=== PATIENT | male | born 1980 | race African-American/Black ===

== ENCOUNTER 2018-02-17 17:59 | Emergency (ER) | payer MEDICAID ==
[~2018-02-17] VITALS: Ht 182.9 cm; Wt 81.8 kg
[2018-02-17 18:16] VITALS: BP 127/73
[2018-02-17] MEDS ORDERED: FLUORESCEIN SODIUM 1MG/STRIP RIGHTEYE ONE (22:30)
[2018-02-17] MEDS ORDERED: TETRACAINE 0.5% OPHTH DROPS 4ML RIGHTEYE ONE (22:30)
== END 2018-02-17 23:40 | disposition home or self-care (01) ==
LOC: ER 17:59
DX: B30.9 Viral conjunctivitis, unspecified (principal); F17.200 Nicotine dependence, unspecified, uncomplicated
CPT/HCPCS: 99283

== ENCOUNTER 2018-05-20 22:58 | Emergency (ER) | payer MEDICAID ==
[~2018-05-20] VITALS: Ht 182.9 cm; Wt 91.0 kg
[2018-05-20] MEDS ORDERED: MORPHINE SULFATE 4 MG/ML CPJ (NOT FOR IM USE) IV ONE (23:15)
[2018-05-20] MEDS ORDERED: LIDOCAINE HCL 2% JELLY 5ML TOP ONE (23:30)
[2018-05-20] MEDS ORDERED: LORAZEPAM 2MG/ML CPJ IV SCH (23:39)
[2018-05-20] MEDS ORDERED: LORAZEPAM 2MG/ML CPJ IV ONE (23:45)
[2018-05-21] MEDS ORDERED: LIDOCAINE HCL/EPINEPHRINE 1%-EPI 1:100,000 20 ML VIAL ONE (00:11)
[2018-05-21] MEDS ORDERED: LIDOCAINE 1%/EPI 1:100,000 10 ML VIAL IJ ONE (00:15)
[2018-05-21] MEDS ORDERED: ONDANSETRON HCL 4MG/2ML INJ IV ONE (00:30)
[2018-05-21] MEDS ORDERED: PROPOFOL 200MG/20ML VIAL IV PRN (00:30)
[2018-05-21] MEDS ORDERED: KETAMINE HCL 50 MG/ML 10ML IV ONE (00:30)
[2018-05-21] MEDS ORDERED: PROPOFOL 200MG/20ML VIAL IV ONE (01:17)
[2018-05-21] MEDS ORDERED: SODIUM CHLORIDE 0.9% 500 ML IV ONE (06:00)
[2018-05-21 06:20] LABS: BASOPHILS % 0.7 % (0.0-2.0); EOSINOPHILS % 0.4 % (0.0-5.0); HEMATOCRIT. 44.9 % (42.0-52.0); HEMOGLOBIN. 15.1 g/dL (14.0-18.0); LYMPHOCYTES % 16.1 % (20.0-50.0); MEAN CORPUSCULAR HEMOGLOBIN 33.3 pg (28.0-32.0); MEAN CORPUSCULAR VOLUME 98.8 fL (80.0-94.0); MEAN PLATELET VOLUME 6.8 fl (7.4-10.4); MONOCYTES % 4.8 % (2.0-8.0); PLATELET 299 x1000/uL (130-400); RED BLOOD CELL COUNT 4.55 mill/uL (4.7-6.1); RED CELL DISTRIBUTION WIDTH 13.4 % (11.6-14.6)
[2018-05-21 06:29] LABS: PROTHROMBIN TIME 10.2 sec (9.1-11.1)
[2018-05-21 06:40] LABS: CHLORIDE 104 mEq/L (98-107)
[2018-05-21 15:30] VITALS: BP 128/82
== END 2018-05-21 16:46 | disposition home or self-care (01) ==
LOC: ER 22:58
DX: T19.4XXA Foreign body in penis, initial encounter (principal); X58.XXXA Exposure to other specified factors, initial encounter; Y93.89 Activity, other specified; Y92.018 Other place in single-family (private) house as the place of occurrence of the external cause
CPT/HCPCS: 36415; 80053; 85025; 85610; 93005; 96374; 96375; 99152; 99153; 99285; J2060; J2270; J2405; J2704; J3490; J7040; Z7610

== ENCOUNTER 2018-05-27 02:38 | Emergency (ER) | payer MEDICAID ==
[~2018-05-27] VITALS: Ht 182.9 cm; Wt 84.0 kg
[2018-05-27] MEDS ORDERED: TETANUS, DIPHTHERIA, PERTUSSIS VAC/PF 0.5ML (>7YR OLD) IM ONE (08:15)
[2018-05-27] MEDS ORDERED: HYDROCODONE/ACETAMINOPHEN 5/325MG TABLET PO ONE (08:15)
[2018-05-27 09:17] LABS: HEMATOCRIT. 43.8 % (42.0-52.0); HEMOGLOBIN. 14.6 g/dL (14.0-18.0); MEAN CORPUSCULAR HEMOGLOBIN 33.2 pg (28.0-32.0); MEAN CORPUSCULAR VOLUME 99.4 fL (80.0-94.0); PLATELET 313 x1000/uL (130-400); RED CELL DISTRIBUTION WIDTH 14.3 % (11.6-14.6)
[2018-05-27 09:24] LABS: CHLORIDE 106 mEq/L (98-107)
[2018-05-27 10:06] LABS: PLATELET ESTIMATE NORMAL
[2018-05-27 10:53] LABS: CLARITY URINE CLEAR (CLEAR); COLOR URINE YELLOW (YELLOW); KETONES URINE TRACE (NEGATIVE); LEUKOCYTE ESTERASE URINE NEGATIVE (NEGATIVE); NITRITE URINE NEGATIVE (NEGATIVE); OCCULT BLOOD URINE NEGATIVE (NEGATIVE); PH URINE 5.5 (4.5-8.0); PROTEIN URINE NEGATIVE (NEGATIVE); SPECIFIC GRAVITY URINE 1.033 (1.005-1.030)
[2018-05-27 11:53] VITALS: BP 131/84
== END 2018-05-27 11:55 | disposition home or self-care (01) ==
LOC: ER 02:38
DX: N48.89 Other specified disorders of penis (principal); J45.909 Unspecified asthma, uncomplicated; Z98.890 Other specified postprocedural states
CPT/HCPCS: 36415; 51702; 76870; 85007; 85027; 93976; 99284

== ENCOUNTER 2018-09-14 20:21 | Emergency (ER) | payer MEDICAID ==
[~2018-09-14] VITALS: Ht 182.9 cm; Wt 84.0 kg
[2018-09-14] MEDS ORDERED: SODIUM CHLORIDE 0.9% 1,000 ML IV ONE (21:33)
[2018-09-14 21:50] LABS: BASOPHILS % 0.4 % (0.0-2.0); HEMATOCRIT. 41.5 % (42.0-52.0); HEMOGLOBIN. 13.9 g/dL (14.0-18.0); LYMPHOCYTES % 7.2 % (20.0-50.0); MEAN CORPUSCULAR HEMOGLOBIN 32.7 pg (28.0-32.0); MEAN CORPUSCULAR VOLUME 97.6 fL (80.0-94.0); MEAN PLATELET VOLUME 6.7 fl (7.4-10.4); MONOCYTES % 7.6 % (2.0-8.0); NEUTROPHILS % 82.8 % (40.0-76.0); PLATELET 318 x1000/uL (130-400); RED BLOOD CELL COUNT 4.26 mill/uL (4.7-6.1); RED CELL DISTRIBUTION WIDTH 13.9 % (11.6-14.6)
[2018-09-14 21:55] LABS: CHLORIDE 104 mEq/L (98-107)
[2018-09-14 21:59] LABS: ETHANOL BLOOD < 10 mg/dL; PARTIAL THROMBOPLASTIN TIME 33.4 sec (23.4-31.0); PROTHROMBIN TIME 10.6 sec (9.6-11.0)
[2018-09-14] MEDS ORDERED: CEFTRIAXONE 1 G PREMIX 50 ML IV ONE (22:30)
[2018-09-15] MEDS ORDERED: MORPHINE SULFATE 4 MG/ML CPJ (NOT FOR IM USE) IV ONE (00:45)
[2018-09-15] MEDS ORDERED: IOHEXOL-350 100 ML BOTTLE ONE (02:52)
[2018-09-15 05:43] VITALS: BP 121/80
== END 2018-09-15 05:44 | disposition home or self-care (01) ==
LOC: ER 20:21 → CANBEDREQ 22:59 → ER 09-15 05:44
DX: L03.211 Cellulitis of face (principal); I88.9 Nonspecific lymphadenitis, unspecified; F17.210 Nicotine dependence, cigarettes, uncomplicated
CPT/HCPCS: 36415; 70450; 70486; 70490; 70498; 71045; 71250; 80053; 80320; 83880; 84484; 85025; 85610; 85730; 93005; 96374; 99284; J2270; J7030; Q9967; Z7610; L0172; G0480